=== PATIENT | female | born 2005 | race Caucasian/White ===

== ENCOUNTER 2024-03-07 14:47 | Emergency (ER) | payer OTHER ==
[~2024-03-07] VITALS: Ht 160 cm; Wt 69.6 kg
[2024-03-07] MEDS: FLUORESCEIN OPHTH 1MG STRIP OD ONE (17:44)
[2024-03-07] MEDS: PROPARACAINE 0.5% OPHTH SOL 15ML OD ONE (17:44)
[2024-03-07] MEDS ORDERED: ERYT5OIN25 OD (17:58)
[2024-03-07 18:13] VITALS: BP 115/58; TEMP 98.2; O2SAT 100
[2024-03-07] MEDS: ERYTHROMYCIN OPHTH OINT OD ONE (18:24)
== END 2024-03-07 18:26 | disposition home or self-care (01) ==
LOC: M ED 14:47
DX: T15.01XA Foreign body in cornea, right eye, initial encounter (principal); Z79.2 Long term (current) use of antibiotics

== ENCOUNTER 2025-02-13 19:21 | Emergency (ER) | payer OTHER ==
[~2025-02-13] VITALS: Ht 160 cm; Wt 72.2 kg
[~2025-02-13 19:21] MED LIST: ERYT5OIN25 OD
[2025-02-13 19:23] VITALS: BP 126/62; TEMP 97.5; O2SAT 100
== END 2025-02-13 21:47 | disposition left against medical advice (07) ==
LOC: M ED 19:21
DX: Z53.21 Procedure and treatment not carried out due to patient leaving prior to being seen by health care provider (principal)